=== PATIENT | male | born 1985 | race Caucasian/White ===

== ENCOUNTER 2019-06-08 21:31 | Emergency (ER) | payer SELFPAY ==
[2019-06-08] MEDS ORDERED: LORazepam 2 MG/ML VIAL IM PRN (21:44)
[2019-06-08] MEDS ORDERED: HALOPERIDOL LACTATE 5 MG/1 ML INJ IM PRN (21:44)
--- NOTE | 2019-06-08 21:45 | Emergency Department Report ---
ED General Adult HPI - General Chief complaint: Psych Stated complaint: SUICIDAL Time Seen by Provider: 06/08/19 21:36 Source: patient, RN notes reviewed Mode of arrival: Ambulatory Limitations: Other (patient is disorganized. The patient is a poor historian.) - History of Present Illness Initial comments: This is a 34-year-old gentleman. This patient is not known to this provider previously. The patient presents to the ER with a complaint of painless suicidality. He will not comment on whether or not he has access to guns or firearms, and whether not he intends to overdose. He is not accompanied by anybody at this time. He has no evidence of external physical trauma. The patient is a poor historian, wandering in his history, and cannot describe exacerbating, relieving factors, or qualitative nature of his symptoms. He doesn't endorse that he comes from [place]. -: unknown Radiation: other Quality: other Consistency: other Improves with: other Worsens with: other - Related Data Allergies Allergy/AdvReac Type Severity Reaction Status Date / Time No Known Allergies Allergy Unverified 06/08/19 22:11 ED Review of Systems ROS: Stated complaint: SUICIDAL Other details as noted in HPI Comment: Unobtainable due to pts medical conditions ED Physical Exam - General Limitations: Other (patient appears to be psychotic, responding to internal stimuli) General appearance: alert, anxious - Head Head exam: Present: atraumatic, normocephalic - Eye Eye exam: Present: normal appearance, PERRL, EOMI, other (visual acuity intact to finger counting, color perception, reading at a close distance) - ENT ENT exam: Present: normal exam, normal orophraynx, mucous membranes moist, normal external ear exam - Neck Neck exam: Present: normal inspection, full ROM. Absent: tenderness, meningismus - Respiratory Respiratory exam: Present: normal lung sounds bilaterally. Absent: respiratory distress - Cardiovascular Cardiovascular Exam: Present: regular rate, normal rhythm, normal heart sounds. Absent: bradycardia, tachycardia, irregular rhythm, systolic murmur, diastolic murmur, rubs, gallop - GI/Abdominal GI/Abdominal exam: Present: soft. Absent: distended, tenderness, guarding, rebound, rigid, pulsatile mass - Rectal Rectal exam: Present: deferred - Extremities Exam Extremities exam: Present: normal inspection, full ROM. Absent: pedal edema, joint swelling - Back Exam Back exam: Present: normal inspection, full ROM. Absent: tenderness, CVA tenderness (R), CVA tenderness (L), paraspinal tenderness, vertebral tenderness - Neurological Exam Neurological exam: Present: alert, normal gait, other (there is no facial droop. The tongue is midline. Extraocular movements are intact bilaterally. Patient speaking in full complete sentences. Shoulder shrug is intact bilaterally. Hearing is grossly intact bilaterally. Visual acuity intact to finger counting and color perception at a close distance. 5/5 strength 4 extremities. Sensation intact to light touch in 4 extremities.) - Psychiatric Psychiatric exam: Present: depressed, anxious, suicidal ideation - Skin Skin exam: Present: warm, dry, intact, normal color. Absent: rash ED Course Vital Signs 06/08/19 06/08/19 06/08/19 21:52 21:59 22:18 Temperature 97.6 F Pulse Rate 88 80 Respiratory 18 18 18 Rate Blood Pressure 160/54 Blood Pressure 109/67 [Right] O2 Sat by Pulse 98 100 Oximetry ED Medical Decision Making - Lab Data Result diagrams: 06/08/19 22:00 06/08/19 22:00 Vital Signs 06/08/19 06/08/19 06/08/19 21:52 21:59 22:18 Temperature 97.6 F Pulse Rate 88 80 Respiratory 18 18 18 Rate Blood Pressure 160/54 Blood Pressure 109/67 [Right] O2 Sat by Pulse 98 100 Oximetry Lab Results 06/08/19 06/08/19 06/08/19 Range/Units 22:00 22:00 22:00 WBC 3.5 L (4.5-11.0) K/mm3 RBC 4.36 (3.65-5.03) M/mm3 Hgb 13.1 (11.8-15.2) gm/dl Hct 39.3 (35.5-45.6) % MCV 90 (84-94) fl MCH 30 (28-32) pg MCHC 33 (32-34) % RDW 13.5 (13.2-15.2) % Plt Count 292 (140-440) K/mm3 Sodium 139 (137-145) mmol/L Potassium 3.6 (3.6-5.0) mmol/L Chloride 99.0 (98-107) mmol/L Carbon Dioxide 25 (22-30) mmol/L Anion Gap 19 mmol/L BUN 14 (9-20) mg/dL Creatinine 0.8 (0.8-1.5) mg/dL Estimated GFR > 60 ml/min BUN/Creatinine Ratio 18 % Glucose 93 (75-100) mg/dL Calcium 8.9 (8.4-10.2) mg/dL Magnesium 2.10 (1.7-2.3) mg/dL Total Creatine Kinase 177 H (55-170) units/L Salicylates < 0.3 L (2.8-20.0) mg/dL Acetaminophen (10.0-30.0) ug/mL [place] 0.1 (0.0-1.2) mmol/L Plasma/Serum Alcohol (0-0.07) % 06/08/19 06/08/19 Range/Units 22:00 22:00 WBC (4.5-11.0) K/mm3 RBC (3.65-5.03) M/mm3 Hgb (11.8-15.2) gm/dl Hct (35.5-45.6) % MCV (84-94) fl MCH (28-32) pg MCHC (32-34) % RDW (13.2-15.2) % Plt Count (140-440) K/mm3 Sodium (137-145) mmol/L Potassium (3.6-5.0) mmol/L Chloride (98-107) mmol/L Carbon Dioxide (22-30) mmol/L Anion Gap mmol/L BUN (9-20) mg/dL Creatinine (0.8-1.5) mg/dL Estimated GFR ml/min BUN/Creatinine Ratio % Glucose (75-100) mg/dL Calcium (8.4-10.2) mg/dL Magnesium (1.7-2.3) mg/dL Total Creatine Kinase (55-170) units/L Salicylates (2.8-20.0) mg/dL Acetaminophen < 5.0 L (10.0-30.0) ug/mL [place] (0.0-1.2) mmol/L Plasma/Serum Alcohol < 0.01 (0-0.07) % - Medical Decision Making Differential diagnosis, including not limited to: Psychosis, disorganized behavior, suicidality, medical clearance for psychiatric placement Assessment and plan: 34-year-old gentleman presenting with a complaint of suicidality. He is afebrile with reassuring vital signs, and quite disorganized. There is no evidence of blunt trauma to the head or neck. He walks with a steady gait. He is disorganized and appears to be responding to internal stimuli. He reports that he is from [facility]. The patient meets 1013 criteria. A 1013 is executed, screening laboratory studies requested, employment case manager consultation requested, and psychiatric consultation requested. His physical exam is unremarkable, screening laboratory studies unremarkable, at this point time, the patient does not appear to have an immediate medical contraindication to psychiatric admission, evaluation, consultation and placement. Critical care attestation.: If time is entered above; I have spent that time in minutes in the direct care of this critically ill patient, excluding procedure time. ED Disposition Clinical Impression: Case management patient, Medical clearance for psychiatric admission Disposition: [id number] PSY HOSP/PSY UNIT Is pt being admited?: No Does the pt Need Aspirin: No Condition: Stable
[2019-06-08 22:16] LABS: Hematocrit 39.3 % (35.5-45.6); Hemoglobin 13.1 gm/dl (11.8-15.2); Mean Corpuscular HGB Conc 33 % (32-34); Mean Corpuscular Volume 90 fl (84-94); Platelet Count 292 K/mm3 (140-440); Red Blood Count 4.36 M/mm3 (3.65-5.03); Red Cell Distribution Width 13.5 % (13.2-15.2)
[2019-06-08 22:27] LABS: BUN/Creatinine Ratio 18; Blood Urea Nitrogen 14 mg/dL (9-20); Calcium 8.9 mg/dL (8.4-10.2); Hemolysis Index 9
[2019-06-09 08:11] LABS: Bacteria,Urine 1+ /HPF (Negative); Bilirubin,Urine NEG (Negative); Blood,Urine NEG (Negative); Mucus,Urine 3+ /HPF
[2019-06-09 08:12] LABS: Color,Urine Yellow (Yellow)
[2019-06-09 08:14] LABS: Benzodiazepines Screen,Urine PRESUMPTIVE NEGATIVE; Methadone Screen,Urine PRESUMPTIVE NEGATIVE; Opiate Screen,Urine PRESUMPTIVE NEGATIVE
[2019-06-09 08:28] LABS: Amphetamine Screen,Urine PRESUMPTIVE POSITIVE; Cannabinoid Screen,Urine PRESUMPTIVE POSITIVE; Cocaine Screen,Urine PRESUMPTIVE POSITIVE
--- NOTE | 2019-06-09 13:58 | Consultation ---
History of Present Illness - Reason for Consult Consult date: 06/09/19 Reason for consult: Mental Health Evaluation Requesting physician: ANNMARIE AQUINO - Chief Complaint Chief complaint: " I am feeling suicidal" - History of Present Psychiatric Illness Patient is a 34 y/o male who presents to ER with suicidal thoughts and a plan. today he is unwilling to disclose plan for suicide. He says he can no longer go on. He endorses auditory hallucinations and occasional visual hallucinations. He is calm, been sleeping this am. He responds appropriately. He reports use of cocaine, THC, and meth. He reports last used 2-3 days ago. He remains suicidal, denies homicidal ideation. Medications and Allergies Allergies Allergy/AdvReac Type Severity Reaction Status Date / Time No Known Allergies Allergy Unverified 06/08/19 22:11 Home Medications Medication Instructions Recorded Confirmed Last Taken Type Unobtainable 06/08/19 06/08/19 Unknown History Active Meds: Active Medications Haloperidol Lactate (Haldol) 5 mg IM Q6HR PRN PRN Reason: Agitation Last Admin: 06/08/19 22:12 Dose: 5 mg Documented by: Lorazepam (Ativan) 2 mg IM Q4HR PRN PRN Reason: Agitation Last Admin: 06/08/19 22:11 Dose: 2 mg Documented by: Mental Status Exam - Vital signs Last Vital Signs Temp 97.9 F 06/09/19 09:00 Pulse 80 06/09/19 09:00 Resp 13 06/09/19 09:00 BP 100/69 06/09/19 09:00 Pulse Ox 97 06/09/19 09:00 - Exam Orientation: time, place, person Affect: depressed, anxious Mood: hopeless, sad, anxious Thought Process: Circumstantial Perceptions: visual, auditory Speech: slow Motor activity: normal Level of consciousness: alert Memory: Intact Interaction: cooperative Results Result Diagrams: 06/08/19 22:00 06/08/19 22:00 Abnormal lab results 06/08/19 06/08/19 06/08/19 Range/Units 22:00 22:00 22:00 WBC 3.5 L (4.5-11.0) K/mm3 Total Creatine Kinase 177 H (55-170) units/L Ur Specific [place] (1.003-1.030) Salicylates < 0.3 L (2.8-20.0) mg/dL Acetaminophen (10.0-30.0) ug/mL 06/08/19 06/09/19 Range/Units 22:00 07:06 WBC (4.5-11.0) K/mm3 Total Creatine Kinase (55-170) units/L Ur Specific [place] 1.032 H (1.003-1.030) Salicylates (2.8-20.0) mg/dL Acetaminophen < 5.0 L (10.0-30.0) ug/mL All other labs normal. Assessment and Plan Assessment and plan: Impression: 34 y/o male with depression and suicidal thoughts Ddx: MDD, SI, bipolar disorder Plan: Continue 1013 on patient will follow-up in 24 hours. We discussed depression with patient and reviewed coping skills with patient. Patient is candidate for inpatient treatment..if no improvement Staffed with Dr. Marilynn Kitchen MD
--- NOTE | 2019-06-10 12:28 | Progress Note ---
Subjective - Reason for Consult Consult date: 06/10/19 Reason for consult: Psych follow-up - Chief Complaint Chief complaint: I am feeling suicidal" - History of Present Psychiatric Illness Patient is a 34 y/o male who presents to ER with suicidal thoughts and a plan. today he is unwilling to disclose plan for suicide. He says he can no longer go on. He endorses auditory hallucinations and occasional visual hallucinations. He is calm, been sleeping this am. He responds appropriately. He reports use of cocaine, THC, and meth. He reports last used 2-3 days ago. He remains suicidal, denies homicidal ideation. Medications and Allergies Allergies Allergy/AdvReac Type Severity Reaction Status Date / Time No Known Allergies Allergy Unverified 06/08/19 22:11 Home Medications Medication Instructions Recorded Confirmed Last Taken Type Unobtainable 06/08/19 06/08/19 Unknown History Active Meds: Active Medications Haloperidol Lactate (Haldol) 5 mg IM Q6HR PRN PRN Reason: Agitation Last Admin: 06/08/19 22:12 Dose: 5 mg Documented by: Lorazepam (Ativan) 2 mg IM Q4HR PRN PRN Reason: Agitation Last Admin: 06/08/19 22:11 Dose: 2 mg Documented by: Mental Status Exam - Vital signs Last Vital Signs Temp 97.9 F 06/09/19 09:00 Pulse 80 06/09/19 09:00 Resp 13 06/09/19 09:00 BP 100/69 06/09/19 09:00 Pulse Ox 97 06/09/19 09:00 - Exam Orientation: time, place, person Affect: depressed, anxious Mood: hopeless, sad, anxious Thought Process: Circumstantial Perceptions: visual, auditory Speech: slow Motor activity: normal Level of consciousness: alert Memory: Intact Interaction: cooperative Mental Status Exam - Vital signs Last Vital Signs Temp 98.4 F 06/10/19 09:46 Pulse 76 06/10/19 09:46 Resp 18 06/10/19 02:00 BP 113/69 06/10/19 09:46 Pulse Ox 99 06/10/19 09:46 - Exam Orientation: time, place Affect: depressed, anxious Mood: hopeless, anxious Thought Process: Intact Perceptions: visual, auditory Speech: normal rate and pattern Concentration: distractible Motor activity: normal Level of consciousness: alert Memory: Intact Interaction: cooperative Assessment and Plan Impression: 34 y/o male with depression and suicidal thoughts Ddx: MDD, SI, bipolar disorder Plan: Continue 1013 on patient will follow-up in 24 hours. We discussed depression with patient and reviewed coping skills with patient. Patient is candidate for inpatient treatment..if no improvement Patient is improving, evaluate in 24 hours.. no meds at this time. Staffed with Dr. Marilynn Kitchen MD
[2019-06-11 03:16] VITALS: BP 104/62
--- NOTE | 2019-06-11 10:20 | Progress Note ---
Subjective - Reason for Consult Consult date: 06/11/19 Reason for consult: Psychiatry Follow-up - Chief Complaint Chief complaint: "I'm having a bad couples of days" 34 y.o. male who presented to the ER for SI's. Today the patient was calm during the assessment. He was informed that he will be transferred to a mental health facility, he stated, "Good." He stated that his SI's wasn't like they were when he arrived to the ER. He denies HI's' and AVH's. Mental Status Exam - Vital signs Last Vital Signs Temp 97.9 F 06/11/19 01:14 Pulse 74 06/11/19 01:14 Resp 16 06/11/19 01:14 BP 104/62 06/11/19 01:14 Pulse Ox 98 06/11/19 01:14 - Exam Narrative exam: MSE: Appearance: calm Behavior: regular eye contact Speech: regular rate and tone Mood: "okay" Affect: congruent to mood Thought Process: circumstantial Thought Content: denies HI's and AVH''s Motor Activity: ambulatory Cognition: A/O x3 Insight: variable Judgment: variable Assessment and Plan Impression: MDD. Substance Use DO (cocaine/amphetamines). Cannabis Use DO. Today the patient was calm during the assessment. DDx: Bipolar DO, Substance Induced Mood DO Recommendation/Plan: Continue 1013. Dispo: The patient was accepted at [facility]. Staffed with Dr Perez Kitchen.
== END 2019-06-11 12:25 ==
LOC: EEVIPCON 21:31 → ED 21:31
DX: F32.9 Major depressive disorder, single episode, unspecified (principal); R45.851 Suicidal ideations; F15.10 Other stimulant abuse, uncomplicated
CPT/HCPCS: 36415; 80048; 80178; 80307; 81001; 82550; 83735; 85027; 96372; 99285; J1630; J2060; 80320; G0480